=== PATIENT | female | born 1995 | race African-American/Black ===

== ENCOUNTER 2016-08-03 21:41 | Emergency (ER) | payer MEDICAID, OTHER ==
[~2016-08-03] VITALS: Ht 167.6 cm; Wt 55.0 kg
[2016-08-03 21:44] VITALS: BP 126/66; PULSE 95; RESP 16; TEMP 98.9; O2SAT 96
[2016-08-03] MEDS ORDERED: LESSTAB PO (22:12)
[2016-08-03] MEDS ORDERED: ORPHENADRINE INJ 60 MG/2 ML AMP IV ONE (22:30)
[2016-08-03] MEDS ORDERED: KETOROLAC TROMETHAMINE 30 MG/ML (IVP) VIAL IV PUSH ONE (22:30)
[2016-08-03 22:53] LABS: AUTOMATED NEUTROPHIL # 2.9 TH/MM3 (1.8-7.7); BASOPHIL % 0.7 % (0.0-2.0); EOSINOPHIL # 0.4 TH/MM3 (0-0.4); HEMATOCRIT 36.6 % (35.0-46.0); HEMO FLAGS DIFF FINAL; LYMPH % 41.2 % (9.0-44.0); LYMPHOCYTE # 2.8 TH/MM3 (1.0-4.8); MEAN CELL VOLUME 75.7 FL (80.0-100.0); MEAN CORPUSCULAR HEMOGLOBIN 24.9 PG (27.0-34.0); MEAN CORPUSCULAR HGB CONC 32.8 % (32.0-36.0); MONO % 10.2 % (0.0-8.0); NEUT % 41.9 % (16.0-70.0); PLATELET COUNT 395 TH/MM3 (150-450); RED BLOOD COUNT 4.84 MIL/MM3 (4.00-5.30); RED CELL DISTRIBUTION WIDTH 16.6 % (11.6-17.2); WHITE BLOOD COUNT 6.8 TH/MM3 (4.0-11.0)
--- NOTE | 2016-08-03 22:57 | RADRPT ---
EXAM DATE/TIME: 08/03/2016 22:40 [place] COMPARISON: No previous studies available for comparison. INDICATIONS : Evaluate chest for trauma, possible fall MEDICAL HISTORY : None. SURGICAL HISTORY : None. ENCOUNTER: Initial ACUITY: 1 day PAIN SCORE: 5/10 LOCATION: Bilateral chest FINDINGS: PA and lateral views of the chest demonstrate the lungs to be symmetrically aerated without evidence of mass, infiltrate or effusion. The cardiomediastinal contours are unremarkable. Osseous structure s are intact. CONCLUSION: No acute disease. Xander Rushing MD on August 03, 2016 at 22:55 Board Certified Radiologist. This report was verified electronically.
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
[2016-08-04 00:09] LABS: BICARBONATE 25.6 MEQ/L (21.0-32.0)
[2016-08-04] MEDS ORDERED: SODIUM CHLOR 0.9% 1000 ML INJ 1,000 ML IV ONE (00:15)
[2016-08-04] MEDS ORDERED: CYCL1TAB29 PO (00:26)
[2016-08-04] MEDS ORDERED: IBUP800T23 PO (00:26)
[2016-08-04 00:27] LABS: CKMB 1.1 NG/ML (0.5-3.6)
--- NOTE | 2016-08-04 08:15 | EKG ---
Date Performed: 08/04/2016 Time Performed: 00:27:45 PTAGE: 20 years EKG: Sinus rhythm WITH SINUS ARRHYTHMIA NORMAL ECG NO PREVIOUS TRACING DOCTOR: Loco Obregon Interpretating Date/Time 08/04/2016 08:14:27
== END 2016-08-04 01:30 | disposition home or self-care (01) ==
LOC: NEPD 21:41
DX: S29.011A Strain of muscle and tendon of front wall of thorax, initial encounter (principal); R07.81 Pleurodynia; V89.2XXA Person injured in unspecified motor-vehicle accident, traffic, initial encounter
CPT/HCPCS: 71020; 80048; 82550; 82552; 84703; 85025; 93005; 96361; 96374; 96375; 99285; J1885; J2360; J7030